=== PATIENT | female | born 1980 | race Caucasian/White ===

== ENCOUNTER → 2016-05-22 | Outpatient (CLI) | payer OTHER ==
--- NOTE | 2016-05-22 11:29 | DI ---
Indication: ITS.REASON: J32.9 CHRONIC SINUSITIS PROCEDURE: CT SINUSES W/O CONTRAST: Encounter: Initial Comparison: None Technique: Axial CT images were performed through the sinuses without intravenous contrast. Coronal and sagittal two-dimensional reformats. Automated Exposure Control and Iterative Reconstruction dose reducing techniques were utilized. Findings: There is mild mucosal thickening in the right maxillary sinus. Trace mucosal thickening in the inferior left maxillary sinus. No air-fluid level. The right ostiomeatal unit is narrowed by mucosal thickening. Left ostiomeatal unit is patent. The frontal sinuses are clear. The anterior, middle and posterior ethmoid air cells are clear. Sphenoid sinuses are clear. Sphenoid ostia are patent. Visualized mastoid air cells are clear. Mild rightward nasal septal bowing and spurring. Impression: Mild maxillary sinus disease without acute sinusitis. .
== END ==
LOC: IMA 10:42
PROVIDERS: ATTEND Family Medicine
DX: J34.89 Other specified disorders of nose and nasal sinuses (principal); J32.9 Chronic sinusitis, unspecified